=== PATIENT | female | born 1945 | race African-American/Black ===

== ENCOUNTER 2024-04-07 14:26 | Inpatient (IN) | payer MEDICARE ==
[~2024-04-07] VITALS: Ht 162.6 cm; Wt 79.4 kg
[2024-04-07] MEDS ORDERED: FLUO40CA8 PO (15:25)
[2024-04-07] MEDS ORDERED: METF-442 PO (15:25)
[2024-04-07] MEDS ORDERED: INSU100I30 SQ (15:25)
[2024-04-07] MEDS ORDERED: ASPI-1420 PO (15:25)
[2024-04-07] MEDS ORDERED: EMPA25TA PO (15:25)
[2024-04-07] MEDS ORDERED: ACET1TAB PO (15:25)
[2024-04-07] MEDS ORDERED: LISI20TA30 PO (15:25)
[2024-04-07] MEDS ORDERED: DONE10TA44 PO (15:25)
[2024-04-07] MEDS ORDERED: AMLO-212 PO (15:25)
[2024-04-07] MEDS ORDERED: CYAN-51 PO (15:25)
[2024-04-07] MEDS ORDERED: ATOR80TA PO (15:25)
[2024-04-07] MEDS ORDERED: OMEGA XL PO ×2 (15:25)
[2024-04-07] MEDS ORDERED: MAG HYDROX/AL HYDROX/SIMETH 30 ML UDC PO PRN (15:30)
[2024-04-07] MEDS ORDERED: ONDANSETRON HCL/PF 4 MG/2 ML VIAL IVP PRN (15:30)
[2024-04-07] MEDS ORDERED: MAGNESIUM HYDROXIDE 30 ML UDC PO PRN (15:30)
[2024-04-07] MEDS: IV NS 0.9% 1,000 ML IV PRN (15:41)
[2024-04-07 16:00] VITALS: BP 164/73; TEMP 97.9; O2SAT 96
[2024-04-07] MEDS ORDERED: DEXTROSE 50%-WATER 50 ML DISP.SYRIN IV PRN (19:30)
[2024-04-07] MEDS: ACETAMINOPHEN 325 MG TABLET PO PRN (19:37)
[2024-04-07 20:22] VITALS: BP 184/79; TEMP 97.5; O2SAT 96
[2024-04-07] MEDS: BLOOD SUGAR DIAGNOSTIC 1 EACH STRIP IN SCH (21:39)
[2024-04-07] MEDS: INSULIN REGULAR, HUMAN 100 UNIT/ML 3 ML VIAL SQ PRN (23:18)
[2024-04-08 00:54] VITALS: BP 166/77; TEMP 98.4; O2SAT 100
[2024-04-08 04:32] VITALS: BP 120/61; TEMP 98.4; O2SAT 95
[2024-04-08 06:34] LABS: BASOPHILS # (AUTO) 0.1 K/uL (0.0-0.2); BASOPHILS % (AUTO) 0.7 % (0.0-2.0); EOSINOPHILS # (AUTO) 0.3 K/uL (0.0-0.7); EOSINOPHILS % (AUTO) 4.4 % (0.0-6.0); HEMATOCRIT 36 % (33-45); HEMOGLOBIN 11.8 g/dL (11.5-14.8); LYMPHOCYTES # (AUTO) 1.5 K/uL (0.8-4.8); LYMPHOCYTES % (AUTO) 19.6 % (20.0-44.0); MEAN CORPUSCULAR HEMOGLOBIN 32 PG (26.0-33.0); MEAN CORPUSCULAR HGB CONC 33 g/dl (31.0-36.0); MEAN CORPUSCULAR VOLUME 97 fL (82-100); MONOCYTES # (AUTO) 0.6 K/uL (0.1-1.30); MONOCYTES % (AUTO) 7.8 % (2.0-12.0); NEUTROPHILS # (AUTO) 5.1 K/uL (1.8-8.9); NEUTROPHILS % (AUTO) 67.5 % (43.0-81.0); PLATELET COUNT (AUTO) 258 K/uL (150-450); RED BLOOD CELL COUNT(AUTO) 3.72 MIL/uL (4.0-5.2); RED CELL DISTRIBUTION WIDTH 14.9 % (11.5-15.0); WHITE BLOOD COUNT (AUTO) 7.5 K/uL (4.3-11.0)
[2024-04-08 06:50] LABS: CALCIUM, SERUM 8.9 mg/dL (8.5-10.1); CARBON DIOXIDE 25 mmol/L (21-32); CHLORIDE 102 mmol/L (98-107); CREATININE 0.6 mg/dL (0.6-1.3); GLUCOSE 181 mg/dL (74-106); MAGNESIUM 2.1 mg/dL (1.8-2.4); PHOSPHORUS 3.4 mg/dL (2.5-4.9); POTASSIUM 4.1 mmol/L (3.5-5.1); SODIUM SERUM 136 mmol/L (136-145); UREA NITROGEN, BLOOD 11 mg/dL (7-18)
[2024-04-08 07:00] VITALS: BP 151/68; TEMP 97.7; O2SAT 100
[2024-04-08] MEDS: ENOXAPARIN SODIUM 40 MG/0.4 ML DISP.SYRIN SQ SCH (11:02)
[2024-04-08] MEDS: KETOROLAC TROMETHAMINE 15 MG/ML VIAL IV PRN (11:18)
[2024-04-08 12:21] LABS: MAGNESIUM 1.9 mg/dL (1.8-2.4); PHOSPHORUS 3.1 mg/dL (2.5-4.9)
[2024-04-08 13:01] LABS: CHOLESTEROL 163 mg/dL (<200); HDL CHOLESTEROL 66 mg/dL (40-60); LDL 72 mg/dL (0-99); TRIGLYCERIDES 168 mg/dL (30-150)
[2024-04-08] MEDS: FLUOXETINE HCL 20 MG CAPSULE PO SCH (15:18)
[2024-04-08] MEDS: LISINOPRIL (20MG) 20 MG TABLET PO SCH (15:19)
[2024-04-08] MEDS: CYANOCOBALAMIN 500 MCG TABLET PO SCH (15:19)
[2024-04-08] MEDS: AMLODIPINE BESYLATE 5 MG TABLET PO SCH (15:20)
[2024-04-08] MEDS: ASPIRIN EC 81 MG TABLET.DR PO SCH (15:20)
[2024-04-08] MEDS: EMPAGLIFLOZIN 25 MG TABLET PO SCH (15:20)
[2024-04-08 16:00] VITALS: BP 137/106; TEMP 97.5; O2SAT 94
[2024-04-08] MEDS: METFORMIN 500 MG TABLET PO SCH (17:21)
[2024-04-08] MEDS: INSULIN GLARGINE, 100 UNIT/ML CARTRIDGE SQ SCH (17:54)
[2024-04-08 20:00] VITALS: BP 140/80; TEMP 98.4; O2SAT 95
[2024-04-08] MEDS: DONEPEZIL 5 MG TABLET PO SCH (21:43)
[2024-04-08] MEDS: ATORVASTATIN 40 MG TABLET PO SCH (21:44)
[2024-04-09] VITALS: BP 143/72; TEMP 98.1; O2SAT 93
[2024-04-09 04:00] VITALS: BP 132/63; TEMP 97.5; O2SAT 94
[2024-04-09 06:45] LABS: BASOPHILS # (AUTO) 0.1 K/uL (0.0-0.2); EOSINOPHILS # (AUTO) 0.3 K/uL (0.0-0.7); EOSINOPHILS % (AUTO) 5.2 % (0.0-6.0); HEMATOCRIT 36 % (33-45); HEMOGLOBIN 11.8 g/dL (11.5-14.8); LYMPHOCYTES # (AUTO) 1.5 K/uL (0.8-4.8); LYMPHOCYTES % (AUTO) 25.3 % (20.0-44.0); MEAN CORPUSCULAR HEMOGLOBIN 31 PG (26.0-33.0); MEAN CORPUSCULAR HGB CONC 33 g/dl (31.0-36.0); MEAN CORPUSCULAR VOLUME 96 fL (82-100); MONOCYTES # (AUTO) 0.5 K/uL (0.1-1.30); NEUTROPHILS # (AUTO) 3.7 K/uL (1.8-8.9); NEUTROPHILS % (AUTO) 60.5 % (43.0-81.0); PLATELET COUNT (AUTO) 261 K/uL (150-450); RED BLOOD CELL COUNT(AUTO) 3.79 MIL/uL (4.0-5.2); RED CELL DISTRIBUTION WIDTH 14.7 % (11.5-15.0); WHITE BLOOD COUNT (AUTO) 6.1 K/uL (4.3-11.0)
[2024-04-09 08:45] VITALS: BP 150/76; TEMP 98.2; O2SAT 93
[2024-04-09 11:39] LABS: ALKALINE PHOSPHATASE 81 U/L (46-116); CALCIUM, SERUM 9.2 mg/dL (8.5-10.1); CARBON DIOXIDE 22 mmol/L (21-32); CHLORIDE 103 mmol/L (98-107); CREATININE 0.8 mg/dL (0.6-1.3); GLUCOSE 296 mg/dL (74-106); MAGNESIUM 1.8 mg/dL (1.8-2.4); POTASSIUM 3.9 mmol/L (3.5-5.1); SODIUM SERUM 138 mmol/L (136-145); UREA NITROGEN, BLOOD 8 mg/dL (7-18)
[2024-04-09 12:10] LABS: ALANINE AMINOTRANSFERASE 20 U/L (12-78); ASPARTATE AMINOTRANSFERASE 13 U/L (15-37); BILIRUBIN,TOTAL 0.3 mg/dL (0.2-1.0); TOTAL PROTEIN, SERUM 6.5 g/dL (6.4-8.2)
[2024-04-09 16:01] VITALS: BP 150/74; TEMP 98.2; O2SAT 95
[2024-04-09 20:00] VITALS: BP 157/81; TEMP 98.4; O2SAT 94
[2024-04-09 21:42] VITALS: BP 157/81; TEMP 98.4; O2SAT 94
[2024-04-10 06:33] LABS: BASOPHILS # (AUTO) 0.1 K/uL (0.0-0.2); BASOPHILS % (AUTO) 0.9 % (0.0-2.0); EOSINOPHILS # (AUTO) 0.4 K/uL (0.0-0.7); EOSINOPHILS % (AUTO) 5.7 % (0.0-6.0); HEMATOCRIT 34 % (33-45); HEMOGLOBIN 11.5 g/dL (11.5-14.8); LYMPHOCYTES # (AUTO) 1.6 K/uL (0.8-4.8); LYMPHOCYTES % (AUTO) 25.4 % (20.0-44.0); MEAN CORPUSCULAR HEMOGLOBIN 32 PG (26.0-33.0); MEAN CORPUSCULAR HGB CONC 34 g/dl (31.0-36.0); MEAN CORPUSCULAR VOLUME 96 fL (82-100); MONOCYTES # (AUTO) 0.6 K/uL (0.1-1.30); MONOCYTES % (AUTO) 8.7 % (2.0-12.0); NEUTROPHILS # (AUTO) 3.8 K/uL (1.8-8.9); NEUTROPHILS % (AUTO) 59.3 % (43.0-81.0); PLATELET COUNT (AUTO) 258 K/uL (150-450); RED BLOOD CELL COUNT(AUTO) 3.57 MIL/uL (4.0-5.2); RED CELL DISTRIBUTION WIDTH 14.8 % (11.5-15.0); WHITE BLOOD COUNT (AUTO) 6.4 K/uL (4.3-11.0)
[2024-04-10 07:00] VITALS: BP 155/79; TEMP 98.2; O2SAT 94
[2024-04-10 07:17] LABS: CALCIUM, SERUM 8.9 mg/dL (8.5-10.1); CARBON DIOXIDE 23 mmol/L (21-32); CHLORIDE 104 mmol/L (98-107); CREATININE 0.5 mg/dL (0.6-1.3); GLUCOSE 119 mg/dL (74-106); MAGNESIUM 1.8 mg/dL (1.8-2.4); POTASSIUM 3.8 mmol/L (3.5-5.1); SODIUM SERUM 140 mmol/L (136-145); UREA NITROGEN, BLOOD 13 mg/dL (7-18)
[2024-04-10 08:46] VITALS: BP 155/79
== END 2024-04-10 16:06 | disposition home health service (06) | DRG 184 ==
LOC: TELE 14:26 → MED 04-09 09:46
PROVIDERS: ADMIT Nurse Practitioner Acute Care; ATTEND Student in an Organized Health Care Education/Training Program
DX: S22.42XA Multiple fractures of ribs, left side, initial encounter for closed fracture (principal); D68.69 Other thrombophilia; F03.93 Unspecified dementia, unspecified severity, with mood disturbance; I10 Essential (primary) hypertension; W01.0XXA Fall on same level from slipping, tripping and stumbling without subsequent striking against object, initial encounter; E03.9 Hypothyroidism, unspecified; E11.40 Type 2 diabetes mellitus with diabetic neuropathy, unspecified; E66.01 Morbid (severe) obesity due to excess calories; F32.A Depression, unspecified; R06.00 Dyspnea, unspecified; Z79.4 Long term (current) use of insulin; Z79.84 Long term (current) use of oral hypoglycemic drugs; Z68.30 Body mass index [BMI] 30.0-30.9, adult; R52 Pain, unspecified; Y93.9 Activity, unspecified; Y92.009 Unspecified place in unspecified non-institutional (private) residence as the place of occurrence of the external cause
CPT/HCPCS: 36415; 71045-TC; 80048-TC; 80053-TC; 80061-TC; 82962-TC; 83735-TC; 84100-TC; 84439-TC; 84443-TC; 84484-TC; 85025-TC; 87081-TC; 93307-TC; 97110-TC; 97116-TC; 97530-TC; 97535-TC; A4223; G0378; J1650; J1815; J1885; J7030; J7042